=== PATIENT | female | born 1975 | race African-American/Black ===

== ENCOUNTER 2019-06-19 23:52 | Emergency (ER) | payer BC, SELFPAY ==
[2019-06-20] MEDS ORDERED: Acetaminophen 500 MG TAB ONE (02:48)
== END 2019-06-20 02:53 | disposition home or self-care (01) ==
LOC: ERS 23:52
DX: K02.9 Dental caries, unspecified (principal); K03.81 Cracked tooth; H92.02 Otalgia, left ear
CPT/HCPCS: 99282